=== PATIENT | female | born 1960 | race African-American/Black ===

== ENCOUNTER → 2016-12-26 | Outpatient (CLI) | payer MEDICAID ==
[~2016-12-26] MED LIST: ASPIRIN81 M2 PO; COZAAR100 MG PO; DOXYCYCLINE HYC50 M2; HUMALOG100 U/M2; LEVEMIR FL100 UNIT/1; LIPITOR40 MG PO; NEURONTIN600 MG PO; PERCOCET PO; PERCOCET10 PO
--- NOTE | ~2016-12-26 | MY29 ---
[facility] A Service of [facility] RADIOLOGY TEXT RESULTS PATIENT: ANTONELLA KNAPP LOCATION: [facility] : 62 UNIT #: [id number] AGE: [address]: Winston Talley MD SEX: F ORDER DR: [id number] [facility] [address]. [place], [place] [address] [id number] O MR#: [id number] #: [id number] NAME: ANTONELLA KNAPP : 1960 SEX: F STUDY DATE/TIME: 12/26/2016 12:10 UNIT: [facility] ROOM: STUDY DESCRIPTION: MY CASE SCREENING W/ CAD BILAT Attending Physician: Winston Talley M.D. Referring Physician: Winston Talley M.D. Ordering Physician: Winston Talley M.D. Primary Care Physician: Winston Talley M.D. MEDICAL IMAGING REPORT This report is preliminary unless electronic signature is present EXAM Digital screening mammogram, 12/26/2016, [facility]. HISTORY 56-year-old woman, no risk elevation. Baseline mammogram. COMPARISON None. FINDINGS Digital imaging of each breast was completed utilizing a two-view examination of each breast in craniocaudal and mediolateral-oblique projections. Review and interpretation of digital mammograms include a second review in conjunction with FDA-approved CAD device. There is a normal parenchymal presentation bilaterally consistent with the patient's age. There are no breast masses imaged and no parenchymal asymmetry is visualized. There are no suspicious microcalcifications and I see no focal architectural disturbance. IMPRESSION Negative screening digital mammogram. One-year followup recommended. Patients over the age of 40 are entered into a reminder system with target due date for the next mammogram. A result letter will also be sent to the patient. BIRADS: 1 Negative Dictated by... Edwin Zuleta M.D. [facility] A Service [facility] RADIOLOGY TEXT RESULTS PATIENT: ANTONELLA KNAPP LOCATION: [facility] : 62 UNIT #: [id number] AGE: [address]: Winston Talley MD SEX: F ORDER DR: THIS IS AN ELECTRONICALLY VERIFIED REPORT Edwin Zuleta M.D. at 12/27/2016 8:08 AM Radha TD: 12/26/2016 17:19 JOB #: [id number] MEDICAL IMAGING REPORT Page 1 of 1 COPY
== END | disposition home or self-care (01) ==
LOC: CWCC 11:45
DX: Z12.31 Encounter for screening mammogram for malignant neoplasm of breast (principal)
CPT/HCPCS: G0202